=== PATIENT | female | born 1975 | race Caucasian/White ===

== ENCOUNTER → 2017-04-10 | Outpatient (CLI) | payer OTHER ==
[~2017-04-10] MED LIST: AMLO-110 PO; FEXO1TAB49 PO; HYDR-4079 PO; LOSA100T2 PO; ONDA4TAB46 PO; POTA10TA PO; PRM/125 PO; PROP160C PO; TPM/50 PO; TPM100 PO; ZLF/100 PO; ZOLP10TA PO
[2017-04-10 14:00] LABS: BASO % 0.7 %; BASO ABS # 0.05 K/uL (0-0.2); COMPLETE YES; EOS % 4.3 %; HEMATOCRIT 38.7 % (37-47); IG% 0.1 %; LYMPH % 24.4 %; LYMPH ABS # 1.65 K/uL (1.2-3.4); MEAN CELL VOLUME 88.6 fL (80-100); MEAN CORPUSCULAR HEMOGLOBIN 30.7 pg (25-34); MEAN CORPUSCULAR HGB CONC 34.6 g/dl (32-36); MEAN PLATELET VOLUME 9.7 fL (7.4-10.4); MONO % 6.5 %; PLATELET COUNT 209 K/uL (130-400); RED BLOOD COUNT 4.37 M/uL (4.2-5.4); WHITE BLOOD COUNT 6.76 K/uL (4.8-10.8)
[2017-04-10 14:22] LABS: ALT/SGPT 49 U/L (12-78); AST/SGOT 30 U/L (15-37); BLOOD UREA NITROGEN 20 mg/dl (7-18); BUN/CREATININE RATIO 18.4 (10-20); CALCIUM 9.1 mg/dl (8.5-10.1); CARBON DIOXIDE 24 mmol/L (21-32); CHLORIDE 109 mmol/L (98-107); GLUCOSE 92 mg/dl (70-99); POTASSIUM 3.8 mmol/L (3.5-5.1); SODIUM 141 mmol/L (136-145)
[2017-04-10 14:34] LABS: ALB/GLOB RATIO 1.1 (0.9-2); ALKALINE PHOSPHATASE 76 U/L (45-117)
== END | disposition home or self-care (01) ==
LOC: C.LABBC 10:32
PROVIDERS: ATTEND Physician Assistant Medical
DX: I10 Essential (primary) hypertension (principal)

== ENCOUNTER 2018-02-26 14:49 | Emergency (ER) | payer OTHER ==
[~2018-02-26 14:49] MED LIST changes: -AMLO-110 PO; +AMLO5TAB3 PO
[2018-02-26 14:55] VITALS: TEMP 36.8; Ht 177.8 cm
[2018-02-26] MEDS ORDERED: ACETAMINOPHEN 500 MG TAB PO STA (15:06)
--- NOTE | 2018-02-26 15:30 | DIAGNOSTIC IMAGING REPORT ---
R ANKLE MIN 3 VIEWS ROUTINE CLINICAL HISTORY: 42 years-old Female presenting with ankle injury. TECHNIQUE: Frontal, mortise, and lateral views the right ankle were obtained. COMPARISON: 08/30/2009. FINDINGS: Ankle mortise intact. No acute fracture or malalignment. No advanced degenerative change. Soft tissue swelling over the lateral malleolus. IMPRESSION: No acute osseous injury. Electronically signed by: Paul Thompson M.D. 02/26/2018 3:28 PM Dictated Date/Time: 02/26/2018 3:28 PM
--- NOTE | 2018-02-26 15:46 | EMERGENCY ROOM VISIT NOTE ---
ED Visit Note First contact with patient: 14:57 CHIEF COMPLAINT: Right ankle injury HISTORY OF PRESENT ILLNESS: This 42-year-old female patient sustained an injury to the right ankle with a twisting, inversion motion just prior to arrival.. Complains of swelling and pain. The patient is able to bear weight on the foot but with pain. Constant pain, moderate to severe, worse with movement, weight bearing, and the dependent position. No knee pain. Patient denies any prior ankle injury. The patient has seen [facility] in the past for other orthopedic needs. REVIEW OF SYSTEMS: 6 system review was performed and was negative unless stated otherwise in history of present illness. PMH: No prior significant ankle injury. Migraines, hysterectomy SOCIAL HISTORY: Patient lives any tobacco or alcohol use. PHYSICAL EXAM: Vital Signs: Were reviewed reviewed Nurse's notes. GENERAL: 42- year-old white female appears in no acute distress. MENTAL STATUS: Alert, oriented, and cooperative. RIGHT ANKLE: The ankle is swollen and tender over the lateral aspect but the skin is intact and there is no ligamentous instability. There is no deformity. The foot and toes are warm and well- perfused. Sensation to pain and light touch is intact. EMERGENCY DEPARTMENT COURSE: The patient was evaluated. The patient was given Tylenol 1 g p.o. for pain. X-ray of the right ankle was ordered interpreted by the radiologist and myself. DIAGNOSTICS:R ANKLE MIN 3 VIEWS ROUTINE CLINICAL HISTORY: 42 years-old Female presenting with ankle injury. TECHNIQUE: Frontal, mortise, and lateral views the right ankle were obtained. COMPARISON: 08/30/2009. FINDINGS: Ankle mortise intact. No acute fracture or malalignment. No advanced degenerative change. Soft tissue swelling over the lateral malleolus. IMPRESSION: No acute osseous injury. Electronically signed by: Paul Thompson M.D. 02/26/2018 3:28 PM The patient was informed of the findings. The patient was placed in a gel splint and given crutches. The patient also requested a walking boot to use as soon as she can bear weight since she cannot use crutches at work. The patient was discharged home in stable condition. DIAGNOSIS: Sprained right ankle DISCHARGE INSTRUCTIONS: Ice and elevation over the next 24 hours. Ibuprofen, 600 mg every 6 hours if needed for pain. Use crutches and wear gel splint until weightbearing is tolerable. If you can bear weight you can switch over to the walking boot. If there is no improvement in 3-5 days followup with your doctor or an orthopedic surgeon . Work as tolerated. Problem List Medical Problems: (1) Hypertension Status: Chronic (2) Migraine Unspecified W/O Intractable Migraine Status: Chronic (3) Syncope Status: Resolved (4) Total hysterectomy with removal of both tubes and ovaries Status: Resolved (5) Tubal Ligation Status Status: Resolved Current/Historical Medications Scheduled Amlodipine (Norvasc), 5 MG PO QAM Estrogens, Conjugated (Premarin), 1.25 MG PO DAILY Fexofenadine Hcl (Shabnam Allergy), 180 MG PO DAILY Losartan Potassium & Hydrochlo (Hyzaar), 1 TAB PO DAILY Potassium Chloride (K-Tabs), 10 MEQ PO DAILY Propranolol Hcl (Propranolol Hcl Er), 160 MG PO DAILY Sertraline HCl (Sertraline HCl), 100 MG PO DAILY Topiramate (Topamax), 50 MG PO QAM Topiramate (Topiramate), 100 MG PO QPM Zolpidem Tartrate (Ambien), 5-10 MG PO HS Scheduled PRN Hydrocodone/Acetaminophen 10MG/325MG ([place] 10MG/325MG), 1 TAB PO Q6H PRN for Pain Ondansetron Hcl (Zofran), 4 MG PO Q6H PRN for Nausea Allergies Coded Allergies: Quinolones (Verified Allergy, Mild, 03/12/16) Shellfish (Verified Allergy, Mild, 03/12/16) Iodinated Contrast Media (Verified Allergy, Unknown, "CAN'T BREATHE", 03/12) Moxifloxacin (Verified Adverse Reaction, Mild, VOMITING, 03/12/16) Vital Signs Date Time Temp Pulse Resp B/P (MAP) Pulse Ox O2 Delivery O2 Flow Rate FiO2 02/26/18 14:55 36.8 71 16 121/82 98 Room Air Medications Administered Medications (Trade) Dose Ordered Sig/Rachid Route Start Time Stop Time Status Last Admin Dose Admin Acetaminophen (Tylenol Tab) 1,000 mg NOW STAT PO 02/26/18 15:06 02/26/18 15:08 DC 02/26/18 15:12 1,000 MG Departure Information Referrals No Doctor, Assigned (PCP) [facility] Instructions [facility]
[2018-02-26 15:52] VITALS: BP 125/68; PULSE 73; O2SAT 99
== END 2018-02-26 16:05 | disposition home or self-care (01) ==
LOC: C.EDB 14:52 → C.EDD 16:05
DX: S93.401A Sprain of unspecified ligament of right ankle, initial encounter (principal); X50.1XXA Overexertion from prolonged static or awkward postures, initial encounter; I10 Essential (primary) hypertension; G43.909 Migraine, unspecified, not intractable, without status migrainosus; Z79.899 Other long term (current) drug therapy; Z91.041 Radiographic dye allergy status; Z88.8 Allergy status to other drugs, medicaments and biological substances; Z91.013 Allergy to seafood

== ENCOUNTER 2024-07-15 09:24 | Observation (INO) ==
--- NOTE | 2024-06-20 14:53 | PAT Medication Instructions ---
Medication Instructions Date of Service June 20, 2024 Home Medications Medication Instructions Recorded albuterol sulfate 90 mcg/actuation 1 - 2 puff inhalation Q4H PRN 08/27/21 aerosol inhaler (Ventolin HFA) Shortness Of Breath Or Wheezing #18 grams methylprednisolone 4 mg tablets in 4 mg PO .COMPLEX #21 ea 01/28/24 a dose pack (Medrol (Levi)) diazepam 5 mg tablet (Valium) 5 mg PO TID PRN muscle spasm #3 03/23/24 tabs diazepam 5 mg tablet (Valium) 5 mg PO TID PRN muscle spasm #6 04/29/24 tabs diclofenac potassium 50 mg tablet 50 mg PO BID #60 tabs 06/06/24 baclofen 10 mg tablet 10 mg PO BID #60 tabs 06/14/24 albuterol sulfate 90 mcg/actuation aerosol inhaler (Ventolin HFA) 1 - 2 puff inhalation Q4H PRN fluticasone 100 mcg-salmeterol 50 mcg/dose blistr powdr for inhalation (Advair Diskus) 1 inh inhalation BID PRN losartan 50 mg-hydrochlorothiazide 12.5 mg tablet 1 tab PO QAM topiramate 200 mg tablet (Topamax) 200 mg PO BID amlodipine 5 mg tablet 5 mg PO QAM rosuvastatin 20 mg tablet 20 mg PO QAM conjugated estrogens 0.3 mg tablet (Premarin) 0.3 mg PO QAM venlafaxine 150 mg capsule,extended release 24 hr (Effexor XR) 150 mg PO QAM methylprednisolone 4 mg tablets in a dose pack (Medrol (Levi)) 4 mg PO .COMPLEX diazepam 5 mg tablet (Valium) 5 mg PO TID PRN diclofenac potassium 50 mg tablet 50 mg PO BID baclofen 10 mg tablet 10 mg PO BID doxycycline monohydrate 100 mg capsule 100 mg PO BID gabapentin 300 mg capsule 300 mg PO BID melatonin 10 mg tablet 20 mg PO HS Continue as directed methylprednisolone 4 mg tablets in a dose pack (Medrol (Levi)) 4 mg PO .COMPLEX ASK your surgeon for instructions diclofenac potassium 50 mg tablet 50 mg PO BID ASK your prescriber and surgeon conjugated estrogens 0.3 mg tablet (Premarin) 0.3 mg PO QAM DO NOT take the morning of surgery losartan 50 mg-hydrochlorothiazide 12.5 mg tablet 1 tab PO QAM Take morning of surgery With a small sip of water, OTHERWISE NOTHING TO EAT OR DRINK AFTER MIDNIGHT: albuterol sulfate 90 mcg/actuation aerosol inhaler (Ventolin HFA) 1 - 2 puff inhalation Q4H PRN(use if needed; please bring with you to hospital day of surgery if possible) fluticasone 100 mcg-salmeterol 50 mcg/dose blistr powdr for inhalation (Advair Diskus) 1 inh inhalation BID PRN(use if needed; please bring with you to hospital day of surgery if possible) topiramate 200 mg tablet (Topamax) 200 mg PO BID amlodipine 5 mg tablet 5 mg PO QAM rosuvastatin 20 mg tablet 20 mg PO QAM venlafaxine 150 mg capsule,extended release 24 hr (Effexor XR) 150 mg PO QAM diazepam 5 mg tablet (Valium) 5 mg PO TID PRN(if needed) baclofen 10 mg tablet 10 mg PO BID doxycycline monohydrate 100 mg capsule 100 mg PO BID gabapentin 300 mg capsule 300 mg PO BID Take evening before surgery albuterol sulfate 90 mcg/actuation aerosol inhaler (Ventolin HFA) 1 - 2 puff inhalation Q4H PRN(if needed) fluticasone 100 mcg-salmeterol 50 mcg/dose blistr powdr for inhalation (Advair Diskus) 1 inh inhalation BID PRN(if needed) topiramate 200 mg tablet (Topamax) 200 mg PO BID diazepam 5 mg tablet (Valium) 5 mg PO TID PRN(if needed) baclofen 10 mg tablet 10 mg PO BID doxycycline monohydrate 100 mg capsule 100 mg PO BID gabapentin 300 mg capsule 300 mg PO BID melatonin 10 mg tablet 20 mg PO HS Other Notes If you have any questions please call us at [phone] or [phone] or [phone] or [phone]
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
[2024-07-15] MEDS ORDERED: MIDAZOLAM HCL 1 MG/ML 2ML VIAL ONE ×2 (10:01→11:36)
[2024-07-15] MEDS ORDERED: fentaNYL citrate PF 100 MCG/2 ML VIAL ONE (10:01)
[2024-07-15] MEDS ORDERED: GLYCOPYRROLATE 0.2 MG/ML VIAL ONE ×3 (10:02→15:16)
[2024-07-15] MEDS ORDERED: PROPOFOL IV EMULSION 10 MG/ML 20 ML VIAL IV ONE ×5 (10:02→10:30)
[2024-07-15] MEDS ORDERED: LIDOCAINE 2% 2 ML VIAL/AMP(20MG/ML) INFIL ONE (10:02)
[2024-07-15] MEDS ORDERED: ONDANSETRON INJ 2 MG/ML 2 ML VIAL ONE (10:02)
[2024-07-15] MEDS ORDERED: DEXAMETHASONE SOD INJ 4 MG/ML VIAL ONE (10:02)
[2024-07-15] MEDS ORDERED: ROCURONIUM BROMIDE 10 MG/ML 5 ML VIAL IV ONE (10:02)
[2024-07-15] MEDS: LACTATED RINGER'S 1,000 ML IV SCH (10:05)
[2024-07-15] MEDS: LR 60ML/HR IV SCH (10:06)
[2024-07-15] MEDS ORDERED: ATROPINE SULFATE 0.1 MG/ML 10ML SYR IV PRN (10:57)
[2024-07-15] MEDS ORDERED: ONDANSETRON INJ 2 MG/ML 2 ML VIAL IV PRN ×2 (10:57→18:26)
[2024-07-15] MEDS ORDERED: ePHEDrine sulfate 50 MG/ML AMP IV PRN (10:57)
[2024-07-15] MEDS ORDERED: PHENYLEPHRINE HCL 10 MG/ML VIAL ONE (11:36)
--- NOTE | 2024-07-15 12:04 | History & Physical Bridge Note ---
Date of Service July 15, 2024 History & Physical Bridge Note I have examined the patient, reviewed the History & Physical and in the interval since the performance of the History & Physical I have noted the following changes of clinical significance: no changes noted Plan for L4-5 TLIF.
--- OUTSIDE RECORDS SUMMARY | 2024-07-15 12:06 | External Medical Summary | Summary of Care ---
Author Name Unknown Organization [facility] Address [address] [address] Phone [phone] Care Team Providers Care Manager Machine Name Role Phone Kamila Villaseñor Primary Care Provider Reason for Visit * Reason Comments eRx-Medication Refill Encounter Details Date Type Department Care Team (Late st Contact Info) Description 07/10/2024 Refill Family Practice [facility] [address] [place] [id number] Kamila Villaseñor CRNP [address] [place] [id number] Allergies Active Allergy Reactions Criticality Noted Date Comments Moxifloxacin Hcl In Nacl 12/29/2014 Codeine 12/29/2014 Iodine Itching 03/31/2016 Shellfish Allergy 12/29/2014 documented as of this encounter (statuses as of 07/12/2024) Medications amLODIPine Besylate 5 MG Oral Tablet (Norvasc)Indicati ons:HTN, goal below 130/80 TAKE 1 TABLET BY MOUTH EVERY DAY IN THE MORNING 90 Tablet 1 01/08/20 24 Active Fluticasone-Salme terol 100-50 MCG/ACT Inhalation Aerosol Powder Breath Activated (Advair Diskus)Indication s:Moderate persistent asthma without complication INHALE 1 PUFF BY MOUTH IN THE MORNING AND BEFORE BEDTIME 60 Each 2 05/17/20 24 Active Topiramate 200 MG Oral Tablet (topAMAX)Indicati ons:Migraine with aura and without status migrainosus, not intractable TAKE 2 TABLETS BY MOUTH TWICE A DAY 120 Tablet 2 06/08/20 24 Active Albuterol Sulfate HFA 108 (90 Base) MCG/ACT Inhalation Aerosol SolutionIndicatio ns:Moderate persistent asthma without complication INHALE BY MOUTH 2 PUFFS EVERY 6 HOURS NEEDED FOR SHORTNESS OF BREATH OR WHEEZING. 18 g 2 06/16/20 24 Active Baclofen 10 MG Oral Tablet (Lioresal) Take 1 Tablet by mouth in the morning and 1 Tablet before bedtime. 06/14/20 24 Active Restasis 0.05 % Ophthalmic Emulsion Instill 1 Drop into both eyes in the morning and 1 Drop before bedtime. 06/02/20 24 Active Gabapentin 300 MG Oral Capsule (Neurontin) Take 1 Capsule by mouth in the morning and 1 Capsule in the evening. 06/06/20 24 Active Diclofenac Potassium 50 MG Oral Tablet Take 1 Tablet by mouth in the morning and 1 Tablet before bedtime. 06/06/20 24 Active predniSONE 10 MG Oral Tablet (Deltasone)Indica tions:Bronchitis, complicated Take 5 tabs for 2 days, 4 tabs for 2 days, 3 tabs for 2 days, 2 tabs for 2 days 1 tab for 2 days 30 Tablet 06/20/20 24 Active Venlafaxine HCl ER 150 MG Oral Capsule Extended Release 24 Hour (Effexor XR)Indications:Ho t flashes due to surgical menopause TAKE 1 CAPSULE BY MOUTH IN THE MORNING. DO NOT CUT, CRUSH OR CHEW. 90 Capsule 07/04/20 24 Active Premarin 1.25 MG Oral Tablet (Estrogens Conjugated)Indica tions:Hot flashes due to surgical menopause TAKE 1 TABLET BY MOUTH EVERY DAY IN THE MORNING 90 Tablet 07/04/20 24 Active Rosuvastatin Calcium 20 MG Oral Tablet (Crestor)Indicati ons:Hyperlipidemi a, unspecified hyperlipidemia type TAKE 1 TABLET BY MOUTH EVERY DAY IN THE MORNING 90 Tablet 07/04/20 24 Active Losartan Potassium 100 MG Oral Tablet (Cozaar) TAKE 1 TABLET BY MOUTH EVERY DAY IN THE MORNING 30 Tablet 07/12/20 24 Active hydroCHLOROthiazi de 12.5 MG Oral Capsule TAKE 1 CAPSULE BY MOUTH EVERY MORNING 30 Capsule 07/12/20 24 Active Losartan Potassium 100 MG Oral Tablet (Cozaar) Take 1 Tablet by mouth in the morning. 30 Tablet 11 07/14/19 24 024 Discontinued hydroCHLOROthiazi de 12.5 MG Oral Capsule Take 1 Capsule by mouth in the morning. 90 Capsule 1 01/08/20 24 024 Discontinued documented as of this encounter (statuses as of 07/12/2024) Active Problems Problem Noted Date Diagnosed Date Hyperhidrosis 01/08/2024 Need for ejvyaqezny-vzhkohv-ubtvsaujj (Tdap) vac cine 01/08/2024 Moderate persistent asthma without complication 07/14/2023 Stress reaction 07/14/2023 Status post left rotator cuff repair 01/08/2023 Hot flashes due to surgical menopause 01/08/2023 Hepatitis C virus infection cured after antiviral drug therapy 12/12/2022 Overview (12/12/2022): HCV treated; SVR confirmed 12/09/2022 Migraine with aura and witho ut status migrainosus, not intractable 04/15/2022 HTN, goal below 130/80 04/15/2022 Irritable bowel syndrome with constipation 04/15 documented as of this encounter (statuses as of 07/12/2024) Resolved Problems Problem Noted Date Diagnosed Date Resolved Date Chronic hepatitis C without hepatic coma 04/15/2022 12/12/2022 Overview (12/12/2022): HCV treated; SVR confirmed 12/09/2022 documented as of this encounter (statuses as of 07/12/2024) Immunizations Name Administration Dates Next Due COVID-19 mRNA, LNP-s, No Pre serve, 2-Dose Series ([employer]) 10/26/2020,10/05/2020 COVID-19, mRNA, LNP-s, PF, B ooster, 100mcg/0.5mg (Moderna) 05/27/2021 HEP A - Hepatitis A (Adult > 18 yrs) 01/08/2023, 12/27/2021 06/28/2022 HEPATITIS B VACCINE, RECOMB, 20 MCG/ML, ADULT (HEPLISAV-B) 01/08/2023 Hepatitis B, 20+ yrs 01/22/2022,12/27/202101/26 Seasonal Influenza, PF, 6 M & above, IM , (FluLaval or Fluzone) 07/14/2023 documented as of this encounter Social History Tobacco Use Types Packs/Day Years Used Date Smoking Tobacco: Never Passive Smoke Exposure: Never Smokeless Tobacco: Never Alcohol Use Standard Drinks/Week Comments Yes 2.5 (1 standard drink = 0.6 oz p ure alcohol) occasionally Comments No Sex and Gender Information Value Date Recorded Sex Assigned at Not on file Legal Sex Female 7:15 AM EST Gender Identity Not on file Sexual Orientation Not on file 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 Not on file Not on file Not on file documented as of this encounter Miscellaneous Notes * Telephone Encounter - Ric Solano MD - 07/12/2024 3:07 PM EST Signed Prescriptions: Disp Refills Losartan Potassium 100 MG Oral Tablet (Coz*30 Tab*0 Sig: TAKE 1 TABLET BY MOUTH EVERY DAY IN THE MORNING Authorizing Provider: RIC SOLANO hydroCHLOROthiazide 12.5 MG Oral Capsule 30 Cap*0 Sig: TAKE 1 CAPSULE BY MOUTH EVERY MORNING Authorizing Provider: RIC SOLANO * Telephone Encounter - Milly Hirsch, box sealing inspector - 07/12/2024 1:57 PM EST Pending Prescriptions: Disp Refills Losartan Potassium 100 MG Oral Tablet (Coz*30 Tab*0 Sig: TAKE 1 TABLET BY MOUTH EVERY DAY IN THE MORNING hydroCHLOROthiazide 12.5 MG Oral Capsule 30 Cap*0 Sig: TAKE 1 CAPSULE BY MOUTH EVERY MORNING * Telephone Encounter - Milly Hirsch box sealing inspector - 07/12/2024 1:56 PM EST Received message from [facility] regarding patient needing labs. Call [facility] She will not be able to do labs for a while Thank you for your assistance Milly Hirsch Logging Assistant II [facility] 07/12/2024,1:56 PM * Telephone Encounter - Shasta Muñoz [facility] - 07/12/2024 6:31 AM ESTPending Prescriptions: Disp Refills Losartan Potassium 100 MG Oral Tablet (Coz*30 Tab*0 Sig: TAKE 1 TABLET BY MOUTH EVERY DAY IN THE MORNING hydroCHLOROthiazide 12.5 MG Oral Capsule 30 Cap*0 Sig: TAKE 1 CAPSULE BY MOUTH EVERY MORNING * Telephone Encounter - Shasta Muñoz [facility] - 07/12/2024 6:31 AM EST Unable to authorize medication refills for pended medication(s) at this time. Per refill protocol patient should have routine on file within past year. Reviewed AMP report, Care Gaps/Health Maintenance, medications list, and for any routine labs typically ordered for this patient. Lab orders placed. Please contact patient to advise of labs ordered for blood draw AND URINE specimen (patient will have to be able to void to provide sample). Recommend patient to fast if able for labs. Patient may still have water and regular medications. Advise to obtain labs before requesting the next refill. After contacting patient, please forward request to ZAYRA Antonio. Thanks, Shasta Muñoz Clinical Pharmacist [facility] [phone] 07/12/2024, 6:31 AM documented in this encounter Plan of Treatment Upcoming Encounters Date Type Department Care Team (Heidi erickson Contact Info) Description 07/21/2024 1:00 PM EST Office Visit Family [facility] [address] [place] [address] Kamila Villaseñor CRNP [address] [place] [address] Health Maintenance Due Date Last Done Comments Depression Screening 1988 Albumin/Creatinine Ratio 1994 DTap/Tdap Vaccines (1 - Tdap) 1995 Pneumococcal Vaccine: Pediatrics (0 to 5 Years) and At-Risk Patients (6 to 18 Years and 19+ Years) (1 of 2 - PCV) 1995 Cologuard 2021 Colonoscopy 2021 Colorectal Cancer Screening 2021 Fecal Occult Blood Test 2021 Sigmoidoscopy 2021 *SPIROMETRY ONCE FOR ASTHMA-ADULT 07/16/2023 GFR 12/10/2023 12/09/2022, 12/03/2021, 12/29/2014 Mammogram 01/16/2024 01/15/2023, 01/15/2023 COVID-19 Vaccine (4 - 2023-2 5 season) 2024 05/27/2021, 10/26/2020, 10/05/2020 Influenza Vaccine (FLU shot) (#1) 2024 07/14/2023 Diabetes Screening 12/09/2025 12/09/2022, 12/03/2021, 12/29/2014 Lipid Panel 12/10/2027 12/09/2022, 01/22/2022 HPV (Gardasil) Vaccine Aged Out No lo nger eligible based on patient's age to complete this topic MENINGOCOCCAL (MENACTRA/MENVEO) Aged Out No longer eligible b ased on patient's age to complete this topic documented as of this encounter Medical Devices Not on filedocumented as of this encounter Care Teams Manager Machine Relationship Specialty Start Date End Date Kamila Villaseñor CRNP [address] [place] [address] PCP - General Nurse Practitioner 07/04/24 documented as of this encounter
[2024-07-15] MEDS ORDERED: PROPOFOL IV EMULSION 10 MG/ML 100 ML VIAL IV ONE ×2 (12:45→15:14)
[2024-07-15] MEDS: ceFAZolin 2000MG 2,000 MG/15 ML SYR IV SCH ×2 (13:13→22:15)
[2024-07-15] MEDS ORDERED: KETAMINE HCL 10MG/ML SYR ONE (13:55)
[2024-07-15] MEDS ORDERED: ePHEDrine sulfate 50 MG/5 ML SYR ONE (13:58)
--- NOTE | 2024-07-15 14:05 | Anesthesiology Progress Note ---
Date of Service July 15, 2024 Anesthesia Post Procedure Vital Signs Vital Signs: Temp Pulse Resp BP Pulse Ox O2 Del Method 07/15/24 09:58 36.4 C L 65 18 145/107 H 97 Room Air Transfer of Care Handoff Completed per policy Notes Mental Status: alert / awake / arousable Patient Amnestic to Procedure: Yes Nausea / Vomiting: adequately controlled Pain: adequately controlled Airway Patency, RR, SpO2: stable & adequate BP & HR: stable & adequate Hydration State: stable & adequate Anesthetic Complications: no major complications apparent and Pt Satisfied with anesthetic care
[2024-07-15] MEDS ORDERED: HYDROmorphone INJ 2 MG/ML SYR/VIAL ONE (14:31)
[2024-07-15] MEDS ORDERED: SODIUM CHLORIDE 0.9% PF INJ 10 ML VIAL ONE ×2 (14:32)
[2024-07-15] MEDS ORDERED: ceFAZolin 330 MG/ML 1 GM VIAL ONE ×2 (16:15)
[2024-07-15] MEDS: ceFAZolin 2000MG 2,000 MG/15 ML SYR IV ONE (16:45)
[2024-07-15] MEDS: FLOSEAL HEMOSTATIC MATRIX 10ML TOP ONE (16:48)
[2024-07-15] MEDS: VANCOMYCIN HCL 1000MG/20ML VIAL ONE (17:00)
--- NOTE | 2024-07-15 17:17 | Post Operative Brief Note ---
PG Immediate Post Op with CF Date of Surgery July 15, 2024 Pre & Post Diagnosis Operation Date: 07/15/24 11:20 Pre-Op Diagnosis: Lumbar Spondylolisthesis and Radiculopathy Post-Op Diagnosis: Lumbar Spondylolisthesis and Radiculopathy I identified the patient and participated in the time-out.: Yes Procedure Operation Date: 07/15/24 11:20 Actual Procedures p L4-L5 Transforaminal Lumbar Interbody Fusion, with Spinal Cord Monitoring(Not Applicable) - Kurt Contreras MD Surgeon Kurt Contreras MD X Ray Developing Machine Operator Dhruv AMAYA Estimated Blood Loss 300 Findings Consistent with Post-Op Diagnosis Specimens Specimen Description: No specimen Drains Everett Catheter and Hakeem-Willett Drain
[2024-07-15] MEDS: BUPIVACAINE 0.5 % 5 MG/1 ML MPF 30ML VIAL ONE (17:23)
--- NOTE | 2024-07-15 17:34 | Operative Report ---
PG Post Operative Report Pre & Post Diagnosis Operation Date: 07/15/24 11:20 Pre-Op Diagnosis: Lumbar Spondylolisthesis and Radiculopathy Lumbar spondylosis Lumbar disc degeneration Lumbar stenosis without neurogenic claudication Post-Op Diagnosis: Lumbar Spondylolisthesis and Radiculopathy Lumbar spondylosis Lumbar disc degeneration Lumbar stenosis without neurogenic claudication I identified the patient and participated in the time-out.: Yes Procedure Transforaminal lumbar interbody fusion with posterior lateral fusion L4-5 (20475) Insertion of interbody spacer for fusion (27219) Posterior nonsegmental pedicle screw instrumentation L4-L5 (78891) Use of intraoperative stereotactic navigation for pedicle screw instrumentation Use of local autograft morselized and allograft for spinal fusion Surgeon Kurt Contreras MD Tandem Mill Roller Dhruv AMAYA Estimated Blood Loss 300 Findings Consistent with Post-Op Diagnosis Implants: Medtronic Solera pedicle screw Medtronic Catalyft interbody spacer Specimens None Drains HAROON Anesthesia Type General Complications none Disposition Disposition: Recovery Room Indications Patient was met in the clinic setting where she had intractable back pain and radicular pain despite conservative care. We discussed further conservative management versus lumbar interbody fusion, after discussion of risks and benefits she agreed to proceed with surgery given failure of nonoperative management. Risks and benefits were discussed in the clinic and documented in her note, informed consent obtained in the office. Description of Procedure I met the patient in the preoperative holding area, surgical site was marked, I again reviewed the procedure and all questions were answered. Patient was brought to the operating room and general anesthesia was induced. She was placed in the prone position on the Hakeem spine table. All bony prominences were padded. She was prepped and draped in the usual sterile fashion. Verbal timeout was performed. Navigation pin was placed into the right side of the PSIS the [employer] O-arm was then brought in and an intraoperative CT scan was performed. The images were uploaded to the in room Stealth navigation unit for placement of instrumentation. I then used the Stealth navigation unit to identify a skin incision over the L4 and L5 spinous processes. Bovie electrocautery was used to dissect down to the lumbodorsal fascia which was split midline over the spinous processes. Subperiosteal dissection was then carried out using Bovie electrocautery to expose the lamina of L4 and 5, L4 and 5 transverse processes as well as the L4-5 facet joints. Next utilizing a navigated bur and Stealth navigation I created airline pilot flight instructor holes into the L4 and L5 pedicles. All was then used to further cannulate tracks into the L4 and L5 pedicles and into the vertebral bodies. Pedicle screws were then placed utilizing navigation into the pedicles of L4 and L5, 6.5 mm diameter scr ews were used at each level. The [employer] O-arm was then brought back in, and a repeat intraoperative CT scan was performed and the images were uploaded to the in room viewer. I then verified using the CT images that pedicle screws were in good position. Pedicle screws were then stimulated by neuromonitoring, no response up to 20 Milliamps. At this point a pedicle screw distractor was attached to the L4 and L5 pedicle screws on the right. The facet joints were taken down completely at L4-5 on the right, to allow access to the L4-5 foramen. The facet joint was removed as well as half of the lamina of L4. Distraction was applied across the pedicle screws. I identified the L4-5 disc space, the traversing L5 nerve root and exiting L4 nerve root were protected by my carpenter assistant with nerve root retractors. Annulus was then incised of the L4-5 disc space. I performed as completed discectomy as possible using cristi, curettes, bone rasp to remove the L4-5 disc and obtain bleeding endplates within the disc space. The disc space was then packed with a combination of autograft bone harvested from the laminectomy and morselized as well as allograft bone material. An interbody spacer was selected and impacted into the L4-5 disc space under fluoroscopic guidance. The interbody spacer was then expanded within the L4-5 disc space to obtain good bony endplate contact. I inspected the traversing nerve root once again and verified that it was free of any compression. At this point I decorticated the L4-5 transverse processes on the right and packed the area with more allograft bone and ceramic based bone graft lockstitch binder. The left L4-5 facet joint was decorticated and packed with demineralized bone matrix as well as ceramic bone graft lockstitch binder. This completed posterior lateral fusion. Rods were placed into the tulip heads of the L4 and L5 pedicle screws, setscrews were tightened with the Medtronic final tightened here. Wound was thoroughly irrigated. A drain was placed exiting out through the skin below the fascia. Wound was then closed in layers with strata fix suture in the fascia, skin was closed with strata fix and zack. Sterile dressing applied, drain attached to suction and patient taken to PACU in stable condition I attest to the content of the Intraoperative Record and any orders documented therein. Any exceptions are noted below.
[2024-07-15] MEDS: fentaNYL citrate PF 100 MCG/2 ML VIAL IV PRN (17:37)
[2024-07-15] MEDS: HYDROmorphone INJ 1 MG/ML SYRINGE IV PRN ×2 (18:02→19:29)
--- NOTE | 2024-07-15 18:15 | Anesthesiology Progress Note ---
Date of Service July 15, 2024 Anesthesia Post Procedure Vital Signs Vital Signs: Temp Pulse Pulse Resp BP Pulse Ox O2 Del Method 07/15/24 18:10 36.7 C 92 H 15 124/69 98 Room Air 07/15/24 18:00 92 H 12 114/85 94 Nasal Cannula 07/15/24 17:50 96 H 16 123/74 95 Room Air 07/15/24 17:40 97 H 12 110/78 98 Oxymask 07/15/24 17:30 96 H 16 121/84 99 Oxymask 07/15/24 17:21 36.2 C L 95 H 16 122/83 99 Oxymask 07/15/24 09:58 36.4 C L 65 18 145/107 H 97 Room Air O2 Flow Rate 07/15/24 18:10 2 07/15/24 18:00 2 07/15/24 17:50 07/15/24 17:40 7 07/15/24 17:30 7 07/15/24 17:21 7 07/15/24 09:58 Pain Intensity Back: Pain Intensity: 8 Transfer of Care Handoff Completed per policy Notes Mental Status: alert / awake / arousable and participated in evaluation Patient Amnestic to Procedure: Yes Nausea / Vomiting: adequately controlled Pain: adequately controlled Airway Patency, RR, SpO2: stable & adequate BP & HR: stable & adequate Hydration State: stable & adequate Anesthetic Complications: no major complications apparent and Pt Satisfied with anesthetic care
[2024-07-15] MEDS ORDERED: diphenhydrAMINE Capsule 25 MG CAP PO PRN (18:26)
[2024-07-15] MEDS ORDERED: bisacodyL 10 MG SUPP PR PRN (18:26)
[2024-07-15] MEDS ORDERED: PROMETHAZINE 12.5 MG/50.5 ML BAG IV PRN (18:26)
[2024-07-15] MEDS ORDERED: ALBUTEROL HFA 8 GM INHALER INH PRN (18:26)
[2024-07-15] MEDS ORDERED: DO NOT ADMINISTER FLU VACCINE PRN (18:26)
[2024-07-15] MEDS ORDERED: ONDANSETRON 4 MG OD TAB PO PRN (18:26)
[2024-07-15] MEDS ORDERED: ALUMINUM/MAGNESIUM SUSP 30 ML UDC PO PRN (18:26)
[2024-07-15] MEDS ORDERED: DO NOT ADMINISTER PNEUMOCOCCAL VACCINE PRN (18:26)
[2024-07-15] MEDS ORDERED: HYDROmorphone INJ 0.5 MG/0.5 ML SYR IV PRN (18:26)
[2024-07-15] MEDS ORDERED: MAGNESIUM HYDROXIDE SUSP 30 ML UDC PO PRN (18:26)
[2024-07-15] MEDS ORDERED: FAMOTIDINE 20 MG TAB PO PRN (18:26)
[2024-07-15] MEDS ORDERED: ACETAMINOPHEN 500 MG TAB PO PRN (18:26)
[2024-07-15] MEDS ORDERED: NALOXONE HCL 0.4 MG/1 ML VIAL/CARP IV PRN (18:26)
[2024-07-15] MEDS ORDERED: SOD PHOSPHATE/SOD BIPHOSPHATE ENEMA 132 ML BTL PR PRN (18:26)
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
[2024-07-15] MEDS: SODIUM CHLORIDE 0.9% 500 ML IV SCH (18:52)
[2024-07-15] MEDS: diazePAM 5 MG TABLET PO PRN (19:29)
[2024-07-15] MEDS: KETOROLAC 30 MG/ML VIAL IV SCH (19:29)
[2024-07-15] MEDS: BACLOFEN 10 MG TAB PO SCH (22:13)
[2024-07-15] MEDS: oxyCODONE/ACETAMINOPHEN 5mg/325mg TAB PO PRN (22:13)
[2024-07-15] MEDS: GABAPENTIN 300 MG CAP PO SCH (22:14)
[2024-07-15] MEDS: DOCUSATE SODIUM/SENNA 50/8.6MG TAB PO SCH (22:14)
[2024-07-15] MEDS: TOPIRAMATE 100 MG TAB PO SCH (22:14)
[2024-07-15] MEDS: MELATONIN 3 MG TAB PO SCH (22:15)
[2024-07-16] MEDS: hydrOXYzine HCl 25 MG TAB PO PRN (01:49)
[2024-07-16] MEDS: POLYETHYLENE (MIRALAX) 17 GM PACK PO SCH (06:02)
[2024-07-16 06:29] LABS: Basophils # (auto) 0.03 K/uL (0.00-0.20); Basophils % (auto) 0.4 %; Eosinophils # (auto) 0.04 K/uL (0.00-0.50); Eosinophils % (auto) 0.5 %; Hematocrit (blood only) 26.7 % (37.0-47.0); Hemoglobin 9.2 g/dl (12.0-16.0); Immature Granulocytes # (auto) 0.02 K/uL (0.01-0.20); Immature Granulocytes % (auto) 0.3 %; Lymphocytes # (auto) 1.89 K/uL (1.20-3.40); Lymphocytes % (auto) 25.9 %; Mean Corpuscular Hemoglobin 30.2 pg (25.0-34.0); Mean Corpuscular Hgb Conc 34.5 g/dL (32.0-36.0); Mean Corpuscular Volume 87.5 fL (80.0-100.0); Mean Platelet Volume 9.7 fL (9.4-12.4); Monocytes % (auto) 8.2 %; Neutrophils # (auto) 4.72 K/uL (1.40-6.50); Neutrophils % (auto) 64.7 %; Platelet Count 174 K/uL (130-400); RDW Coefficient of Variation 13.4 % (11.5-14.5); RDW Standard Deviation 42.8 fL (36.4-46.3); Red Blood Count 3.05 M/uL (4.20-5.40)
[2024-07-16 06:45] LABS: BUN Creatinine Ratio 25.8 (10-20); Calcium 7.9 mg/dl (8.6-10.3); Creatinine Clr Calc Pharmacy 94.3 ml/min; Magnesium 1.9 mg/dl (1.7-2.4); Potassium 3.1 mmol/L (3.5-5.1)
--- NOTE | 2024-07-16 07:48 | Hospitalist Progress Note ---
Date of Service July 16, 2024 Assessment & Plan (1) Lumbar radiculopathy: (2) S/P lumbar spine operation: Plan Yudy Perdomo is a 48-year-old with past medical history significant for asthma, HTN, HLD, IBS with constipation, hyperhidrosis, migraines, hepatitis C virus infection cured after antiviral drug therapy and anxiety/depression who was referred to our [facility] Team for routine postoperative medical management after undergoing elective L4-L5 transforaminal lumbar interbody fusion secondary to lumbar spondylolisthesis and radiculopathy performed by Dr. Kurt Contreras on 07/15/2024. Lumbar Spondylolisthesis and Radiculopathy S/P Surgery: POD #1 s/p L4-L5 transforaminal lumbar interbody fusion with Dr. Contreras on 07/15/2024. Pre-Op Hgb: 12.4 [as of 07/04/2024] Per ortho for pain control, wound care, anticoagulation and activities. Continue incentive spirometry, PT/OT when appropriate as per ortho team. Acute blood loss anemia, post-op vs dilutional - current Hgb 9.2 - no need for blood transfusion - cont. to monitor Other Chronic Medical Conditions: * HTN - Hold home antihypertensives for ISO relative hypotension. Asthma - Continue home inhaler. * Depression/Anxiety - Continue Effexor XR, diazepam PRN. HLD - Continue statin. Migraines - Topamax. DVT Prophylaxis: SCDs/TEDs as per primary service. Code Status: FULL CODE PCP: ZAYRA Awan Disposition:Med/Surg - discharge planning as per primary service. Thank you for this consultation. We will follow the patient with you during their hospital stay. You can reach a member of the [facility]ist Team 02/02 via [employer]. Admission and Anticipated Discharge Date Admission Date: July 15, 2024 Subjective Pt seen in follow up , s/p spinal surg., med consult Currently laying in bed in NAD, family present at the bedside Feeling well, having some post-surgical pain, but LE pain she had before surgery is resolved No fever, chills, chest pain, shortness of breath, no abd. pain, n/v Ambulating w/ walker this AM w/ PT. Voiding w/o difficulty. No BM yet Review of Systems Review of Systems: All systems reviewed & are unremarkable except as noted in Subjective Physical Exam Physical Exam: GENERAL: WD/WN F in NAD HEENT: NC, AT. MMM. EOMI, clear conjunctiva NECK: Supple without lymphadenopathy. No stiffness or restricted ROM. HEART: Normal rate and regular rhythm, normal S1/S1, no m/r/g LUNGS: CTAB, moving air well. No crackles or wheezes are heard. ABDOMEN: Soft, nontender, nondistended, +bowel sounds. EXTREMITIES: no LE edema, moves extremities NEUROLOGICAL: Alert and oriented, speech fluent, answers appropriately, moving all 4 extremities Skin: Warm and dry without any rash. + tattoos Results & Data Results & Data Vital Signs (Past 12 Hours) Vital Signs Temp Pulse Resp BP BP Pulse Ox O2 Del Method 07/16/24 04:59 36.9 C 70 18 120/74 97 Room Air 07/16/24 00:17 36.5 C 78 18 130/81 96 Room Air 07/15/24 21:30 36.8 C 84 18 116/66 98 Room Air 07/15/24 20:30 36.7 C 88 18 106/67 96 Room Air 07/15/24 19:56 Room Air Laboratory Results 07/16/24 Range/Units 05:53 WBC 7.30 (4.8-10.8) K/ul RBC 3.05 L (4.20-5.40) M/uL Hgb 9.2 L (12.0-16.0) g/dl Hct 26.7 L (37.0-47.0) % MCV 87.5 (80.0-100.0) fL MCH 30.2 (25.0-34.0) pg MCHC 34.5 (32.0-36.0) g/dL RDW Std Deviation 42.8 (36.4-46.3) fL RDW Coeff of Chauncey 13.4 (11.5-14.5) % Plt Count 174 (130-400) K/uL MPV 9.7 (9.4-12.4) fL Immature Gran % (Auto) 0.3 % Neut % (Auto) 64.7 % Lymph % (Auto) 25.9 % [facility] % (Auto) 8.2 % Eos % (Auto) 0.5 % Baso % (Auto) 0.4 % Neut # (Auto) 4.72 (1.40-6.50) K/uL Lymph # (Auto) 1.89 (1.20-3.40) K/uL [facility] # (Auto) 0.60 H (0.11-0.59) K/uL Eos # (Auto) 0.04 (0.00-0.50) K/uL Baso # (Auto) 0.03 (0.00-0.20) K/uL Immature Gran # (Auto) 0.02 (0.01-0.20) K/uL Sodium 138 (136-145) mmol/L Potassium 3.1 L (3.5-5.1) mmol/L Chloride 109 H (98-107) mmol/L Carbon Dioxide 22 (21-32) mmol/L Anion Gap 7 (3-11) BUN 23 (6-23) mg/dl Creatinine 0.89 (0.6-1.2) mg/dl Est Cr Clr Drug Dosing 94.3 ml/min eGFR 80.42 BUN/Creatinine Ratio 25.8 H (10-20) Glucose 104 H (70-99(Fasting)) mg/dl Calcium 7.9 L (8.6-10.3) mg/dl Magnesium 1.9 (1.7-2.4) mg/dl Medications Administered Current Inpatient Medications Acetaminophen (Acetaminophen 500 Mg Tab) 1,000 mg PO Q8H PRN PRN Reason: MILD Pain Scale 1,2,3 & Pre PT Stop: 08/14/24 18:25 Al Hydrox/Mg Hydrox/Simethicone (Aluminum/Magnesium Susp 30 Ml Udc) 30 ml PO Q6H PRN PRN Reason: Dyspepsia Stop: 08/14/24 18:25 Albuterol (Albuterol Hfa 8 Gm Inhaler) 1 - 2 puffs INH Q4H PRN PRN Reason: Shortness Of Breath Or Wheezing Stop: 08/14/24 18:25 Baclofen (Baclofen 10 Mg Tab) 10 mg PO BID MOSHE Stop: 08/14/24 20:59 Last Admin: 07/15/24 22:13 Dose: 10 mg Bisacodyl (Bisacodyl 10 Mg Supp) 10 mg MT DAILY PRN PRN Reason: Constipation Stop: 08/14/24 18:25 Diazepam (Diazepam 5 Mg Tablet) 5 mg PO TID PRN PRN Reason: muscle spasm Stop: 08/14/24 18:25 Last Admin: 07/16/24 06:02 Dose: 5 mg Diphenhydramine HCl (Diphenhydramine Capsule 25 Mg Cap) 25 mg PO Q6H PRN PRN Reason: Allergic Rhinitis/Insomnia Stop: 08/14/24 18:25 Famotidine (Famotidine 20 Mg Tab) 20 mg PO Q12H PRN PRN Reason: Dyspepsia Stop: 08/14/24 18:25 Fluticasone/Vilanterol (Fluticasone/Vilanterol 100/25mcg 14 Puffs/Inhaler) 1 puffs INH DAILY MOSHE Stop: 08/15/24 08:59 Gabapentin (Gabapentin 300 Mg Cap) 300 mg PO BID MOSHE Stop: 08/14/24 20:59 Last Admin: 07/15/24 22:14 Dose: 300 mg Hydromorphone HCl (Hydromorphone Inj 0.5 Mg/0.5 Ml Syr) 0.5 mg IV Q3H PRN PRN Reason: MODERATE Pain (Scale 4,5,6) & Pre PT Stop: 07/29/24 18:25 Hydromorphone HCl (Hydromorphone Inj 1 Mg/Ml Syringe) 1 mg IV Q3H PRN PRN Reason: SEVERE Pain (Scale 7,8,9,10) Stop: 07/29/24 18:25 Last Admin: 07/16/24 06:02 Dose: 1 mg Hydroxyzine HCl (Hydroxyzine Hcl 25 Mg Tab) 25 mg PO Q8H PRN PRN Reason: Anxiety Stop: 08/14/24 18:25 Last Admin: 07/16/24 01:49 Dose: 25 mg Promethazine HCl (Phenergan) 12.5 mg in 50.5 mls @ 202 mls/hr IV Q6H PRN PRN Reason: Nausea And Vomiting Stop: 08/14/24 18:25 Influenza Virus Vaccine Quadrival (Do Not Administer Flu Vaccine) 1 each N/A PRN PRN PRN Reason: Notification Stop: 08/14/24 18:25 Magnesium Hydroxide (Magnesium Hydroxide Susp 30 Ml Udc) 30 ml PO Q24H PRN PRN Reason: Constipation Stop: 08/14/24 18:25 Melatonin (Melatonin 3 Mg Tab) 18 mg PO HS MOSHE Stop: 08/14/24 20:59 Last Admin: 07/15/24 22:15 Dose: 18 mg Naloxone HCl (Naloxone Hcl 0.4 Mg/1 Ml Vial/Carp) 0.1 mg IV Q5M PRN PRN Reason: Oversedation/Resp depression Stop: 08/14/24 18:25 Ondansetron HCl (Ondansetron Inj 2 Mg/Ml 2 Ml Vial) 4 mg IV Q6H PRN PRN Reason: Nausea &/or Vomiting Stop: 08/14/24 18:25 Ondansetron HCl (Ondansetron 4 Mg Od Tab) 4 mg PO Q6H PRN PRN Reason: Nausea Stop: 08/14/24 18:25 Oxycodone/Acetaminophen (Oxycodone/Acetaminophen 5mg/325mg Tab) 1 - 2 tab PO Q4H PRN PRN Reason: Pain & Pre PT Stop: 07/29/24 18:25 Last Admin: 07/16/24 04:08 Dose: 2 tab Pneumococcal Polyvalent Vaccine (Do Not Administer Pneumococcal Vaccine) 1 each N/A PRN PRN PRN Reason: Notification Stop: 08/14/24 18:25 Polyethylene Glycol (Polyethylene (Miralax) 17 Gm Pack) 17 gm PO Q6 MOSHE Stop: 08/15/24 05:59 Last Admin: 07/16/24 06:02 Dose: 17 gm Potassium Chloride (Potassium Chloride Crtab 20 Meq Tabcr) 40 meq PO NOW STA Stop: 07/16/24 07:47 Rosuvastatin Calcium (Rosuvastatin Calcium 20 Mg Tab) 20 mg PO QAM MOSHE Stop: 08/15/24 08:59 Senna/Docusate Sodium (Docusate Sodium/Senna 50/8.6mg Tab) 2 tab PO HS MOSHE Stop: 08/14/24 20:59 Last Admin: 07/15/24 22:14 Dose: 2 tab Sodium Biphosphate/Sodium Phosphate (Sod Phosphate/Sod Biphosphate Enema 132 Ml Btl) 132 ml MT ONE PRN PRN Reason: Constipation Stop: 08/14/24 18:25 Topiramate (Topiramate 100 Mg Tab) 200 mg PO BID MOSHE Stop: 08/14/24 20:59 Last Admin: 07/15/24 22:14 Dose: 200 mg Venlafaxine HCl (Venlafaxine Hcl Xr 150 Mg Capxr) 150 mg PO QAM MOSHE Stop: 08/15/24 08:59
[2024-07-16] MEDS: POTASSIUM CHLORIDE CRTAB 20 MEQ TABCR PO STA (08:44)
[2024-07-16] MEDS: FLUTICASONE/VILANTEROL 100/25MCG 14 PUFFS/INHALER INH SCH (08:44)
[2024-07-16] MEDS: ROSUVASTATIN CALCIUM 20 MG TAB PO SCH (08:44)
[2024-07-16] MEDS: VENLAFAXINE HCL XR 150 MG CAPXR PO SCH (08:44)
--- NOTE | 2024-07-16 10:14 | Orthopedic Progress Note ---
Date of Service July 16, 2024 Assessment & Plan (1) S/P lumbar fusion: s/p Lumbar Fusion WBAT, AAT with PT Scds and ambulate cont drain Diet as tolerated Pain control - percocet, muscle relaxers disposition planning, home in 1-2 days pending progress with PT and drain Subjective s/p TLIF, incisional pain as expected, pre op radicular pain has resolved with procedure, ambulating through halls this AM. Review of Systems All systems reviewed & are unremarkable except as noted in HPI & below. Physical Exam 5/5 L2-S1 myotomes SILT L2-S1 drain functioning Results & Data Results & Data Laboratory Results . Diagnostic Findings . PG Care Time/CCT Total # of Minutes Spent Total Time Spent with Patient: Total time spent is greater than 50% in coordination of care (as documented) at patient's floor/unit and/or counseling patient: Coding Level of Care Code 56393 Post Operative Follow-Up Diagnoses S/P lumbar fusion Z98.1
--- NOTE | 2024-07-16 12:22 | XRay Report ---
XR lumbar spine 2-3V CLINICAL HISTORY: post-op spine surgery COMPARISON STUDY: Lumbar spine MRI May 19, 2024. Intraoperative lumbar spine fluoroscopic images July 15, 2024. FINDINGS: L4-L5 discectomy with interbody spacer placement as noted. There is a posterior decompressi on with bilateral pedicle screws at the L4 and L5 levels. Surgical drain is in place. There are skin zack. There are no unexpected radiopaque foreign bodies. IMPRESSION: Expected findings following L4-L5 decompression and fusion. ACT 112: Negative or not required by law. Electronically signed by: Patrick Lazo M.D. 07/16/2024 12:20 PM
[2024-07-16] MEDS: BACLOFEN 20 MG TAB PO SCH (20:42)
[2024-07-17 07:36] LABS: BUN Creatinine Ratio 31.6 (10-20); Calcium 8.5 mg/dl (8.6-10.3); Creatinine Clr Calc Pharmacy 110.4 ml/min; Phosphorus 3.8 mg/dl (2.5-4.9); Potassium 3.6 mmol/L (3.5-5.1)
[2024-07-17 07:48] LABS: Hematocrit (blood only) 28.7 % (37.0-47.0); Hemoglobin 9.4 g/dl (12.0-16.0); Mean Corpuscular Hemoglobin 30.4 pg (25.0-34.0); Mean Corpuscular Hgb Conc 32.8 g/dL (32.0-36.0); Mean Corpuscular Volume 92.9 fL (80.0-100.0); Platelet Count 168 K/uL (130-400); RDW Coefficient of Variation 13.9 % (11.5-14.5); Red Blood Count 3.09 M/uL (4.20-5.40); White Blood Count 6.38 K/ul (4.8-10.8)
--- NOTE | 2024-07-17 10:33 | Fluoroscopy Report ---
FL lumbar spine 2-3V CLINICAL HISTORY: L4-L5 WITH CAROLYN AND OARM COMPARISON STUDY: Lumbar spine MRI May 19, 2024. FLUOROSCOPY TIME: 34 seconds. Ka,r: 26.33 mGy FLUOROSCOPIC IMAGES: 3 FINDINGS: Fluoroscopy was provided during L4-L5 decompression and fusion with interbody spacer placem ent. Hardware is intact. IMPRESSION: Fluoroscopy provided L4-L5 decompression and fusion. ACT 112: Negative or not required by law. Electronically signed by: Patrick Lazo M.D. 07/17/2024 10:31 AM
--- NOTE | 2024-07-17 10:41 | Hospitalist Progress Note ---
Date of Service July 17, 2024 Assessment & Plan (1) Lumbar radiculopathy: (2) S/P lumbar spine operation: Plan Yudy Perdomo is a 48-year-old with past medical history significant for asthma, HTN, HLD, IBS with constipation, hyperhidrosis, migraines, hepatitis C virus infection cured after antiviral drug therapy and anxiety/depression who [facility] after undergoing elective L4-L5 transforaminal lumbar interbody fusion secondary to lumbar spondylolisthesis and radiculopathy performed by Dr. Kurt Contreras on 07/15/2024. Lumbar Spondylolisthesis and Radiculopathy S/P Surgery: POD #2 s/p L4-L5 transforaminal lumbar interbody fusion with Dr. Contreras on 07/15/2024. Pre-Op Hgb: 12.4 [as of 07/04/2024] Per ortho for pain control, wound care, anticoagulation and activities. Continue incentive spirometry, PT/OT when appropriate as per ortho team. Acute blood loss anemia, post-op vs dilutional - current Hgb 9.4 (stable from yesterday) - no need for blood transfusion - cont. to monitor Other Chronic Medical Conditions: * HTN - Hold home antihypertensives for ISO relative hypotension. Asthma - Continue home inhaler. * Depression/Anxiety - Continue Effexor XR, diazepam PRN. HLD - Continue statin. Migraines - Topamax. DVT Prophylaxis: SCDs/TEDs as per primary service. Code Status: FULL CODE PCP: ZAYRA Awan Disposition:Med/Surg - discharge planning as per primary service. Thank you for this consultation. We will follow the patient with you during their hospital stay. You can reach a [facility] via As Seen on TV. Admission and Anticipated Discharge Date Admission Date: July 15, 2024 Subjective Pt seen in follow up , s/p spinal surg., med consult Currently laying in bed in NAD, family present at the bedside Feeling well, having some post-surgical pain, but LE pain she had before surgery is resolved No fever, chills, chest pain, shortness of breath, no abd. pain, n/v Ambulating w/ walker. Voiding w/o difficulty. No BM yet. Passing flatus. Hgb 9.4, stable Review of Systems Review of Systems: All systems reviewed & are unremarkable except as noted in Subjective Physical Exam Physical Exam: GENERAL: WD/WN F in NAD HEENT: NC, AT. MMM. EOMI, clear conjunctiva NECK: Supple. No stiffness or restricted ROM. HEART: Normal rate and regular rhythm, normal S1/S1, no m/r/g LUNGS: CTAB, moving air well. No crackles or wheezes are heard. ABDOMEN: Soft, nontender, nondistended, +bowel sounds. EXTREMITIES: no LE edema, moves extremities NEUROLOGICAL: Alert and oriented, speech fluent, answers appropriately, moving all 4 extremities Skin: Warm and dry without any rash. + tattoos Results & Data Results & Data Vital Signs (Past 12 Hours) Vital Signs Temp Pulse Resp BP Pulse Ox O2 Del Method 07/17/24 07:19 36.8 C 74 18 125/83 99 Room Air Laboratory Results 07/17/24 Range/Units 05:51 WBC 6.38 (4.8-10.8) K/ul RBC 3.09 L (4.20-5.40) M/uL Hgb 9.4 L (12.0-16.0) g/dl Hct 28.7 L (37.0-47.0) % MCV 92.9 D (80.0-100.0) fL MCH 30.4 (25.0-34.0) pg MCHC 32.8 (32.0-36.0) g/dL RDW Std Deviation 47.0 H (36.4-46.3) fL RDW Coeff of Chauncey 13.9 (11.5-14.5) % Plt Count 168 (130-400) K/uL MPV 10.0 (9.4-12.4) fL Sodium 140 (136-145) mmol/L Potassium 3.6 (3.5-5.1) mmol/L Chloride 111 H (98-107) mmol/L Carbon Dioxide 24 (21-32) mmol/L Anion Gap 5 (3-11) BUN 24 H (6-23) mg/dl Creatinine 0.76 (0.6-1.2) mg/dl Est Cr Clr Drug Dosing 110.4 ml/min eGFR 97.20 BUN/Creatinine Ratio 31.6 H (10-20) Glucose 100 H (70-99(Fasting)) mg/dl Calcium 8.5 L (8.6-10.3) mg/dl Phosphorus 3.8 (2.5-4.9) mg/dl Magnesium 2.0 (1.7-2.4) mg/dl Medications Administered Current Inpatient Medications Acetaminophen (Acetaminophen 500 Mg Tab) 1,000 mg PO Q8H PRN PRN Reason: MILD Pain Scale 1,2,3 & Pre PT Stop: 08/14/24 18:25 Al Hydrox/Mg Hydrox/Simethicone (Aluminum/Magnesium Susp 30 Ml Udc) 30 ml PO Q6H PRN PRN Reason: Dyspepsia Stop: 08/14/24 18:25 Albuterol (Albuterol Hfa 8 Gm Inhaler) 1 - 2 puffs INH Q4H PRN PRN Reason: Shortness Of Breath Or Wheezing Stop: 08/14/24 18:25 Baclofen (Baclofen 20 Mg Tab) 20 mg PO PM MOSHE Stop: 08/15/24 20:59 Last Admin: 07/16/24 20:42 Dose: 20 mg Bisacodyl (Bisacodyl 10 Mg Supp) 10 mg SC DAILY PRN PRN Reason: Constipation Stop: 08/14/24 18:25 Diazepam (Diazepam 5 Mg Tablet) 5 mg PO TID PRN PRN Reason: muscle spasm Stop: 08/14/24 18:25 Last Admin: 07/17/24 09:15 Dose: 5 mg Diphenhydramine HCl (Diphenhydramine Capsule 25 Mg Cap) 25 mg PO Q6H PRN PRN Reason: Allergic Rhinitis/Insomnia Stop: 08/14/24 18:25 Famotidine (Famotidine 20 Mg Tab) 20 mg PO Q12H PRN PRN Reason: Dyspepsia Stop: 08/14/24 18:25 Fluticasone/Vilanterol (Fluticasone/Vilanterol 100/25mcg 14 Puffs/Inhaler) 1 puffs INH DAILY MOSHE Stop: 08/15/24 08:59 Last Admin: 07/17/24 08:47 Dose: Not Given Gabapentin (Gabapentin 300 Mg Cap) 300 mg PO BID MOSHE Stop: 08/14/24 20:59 Last Admin: 07/17/24 09:15 Dose: 300 mg Hydromorphone HCl (Hydromorphone Inj 0.5 Mg/0.5 Ml Syr) 0.5 mg IV Q3H PRN PRN Reason: MODERATE Pain (Scale 4,5,6) & Pre PT Stop: 07/29/24 18:25 Hydromorphone HCl (Hydromorphone Inj 1 Mg/Ml Syringe) 1 mg IV Q3H PRN PRN Reason: SEVERE Pain (Scale 7,8,9,10) Stop: 07/29/24 18:25 Last Admin: 07/17/24 07:22 Dose: 1 mg Hydroxyzine HCl (Hydroxyzine Hcl 25 Mg Tab) 25 mg PO Q8H PRN PRN Reason: Anxiety Stop: 08/14/24 18:25 Last Admin: 07/17/24 03:24 Dose: 25 mg Promethazine HCl (Phenergan) 12.5 mg in 50.5 mls @ 202 mls/hr IV Q6H PRN PRN Reason: Nausea And Vomiting Stop: 08/14/24 18:25 Influenza Virus Vaccine Quadrival (Do Not Administer Flu Vaccine) 1 each N/A PRN PRN PRN Reason: Notification Stop: 08/14/24 18:25 Magnesium Hydroxide (Magnesium Hydroxide Susp 30 Ml Udc) 30 ml PO Q24H PRN PRN Reason: Constipation Stop: 08/14/24 18:25 Melatonin (Melatonin 3 Mg Tab) 18 mg PO HS MOSHE Stop: 08/14/24 20:59 Last Admin: 07/16/24 21:56 Dose: 18 mg Naloxone HCl (Naloxone Hcl 0.4 Mg/1 Ml Vial/Carp) 0.1 mg IV Q5M PRN PRN Reason: Oversedation/Resp depression Stop: 08/14/24 18:25 Ondansetron HCl (Ondansetron Inj 2 Mg/Ml 2 Ml Vial) 4 mg IV Q6H PRN PRN Reason: Nausea &/or Vomiting Stop: 08/14/24 18:25 Ondansetron HCl (Ondansetron 4 Mg Od Tab) 4 mg PO Q6H PRN PRN Reason: Nausea Stop: 08/14/24 18:25 Oxycodone/Acetaminophen (Oxycodone/Acetaminophen 5mg/325mg Tab) 1 - 2 tab PO Q4 H PRN PRN Reason: Pain & Pre PT Stop: 07/29/24 18:25 Last Admin: 07/17/24 09:16 Dose: 2 tab Pneumococcal Polyvalent Vaccine (Do Not Administer Pneumococcal Vaccine) 1 each N/A PRN PRN PRN Reason: Notification Stop: 08/14/24 18:25 Polyethylene Glycol (Polyethylene (Miralax) 17 Gm Pack) 17 gm PO Q6 MOSHE Stop: 08/15/24 05:59 Last Admin: 07/17/24 05:11 Dose: 17 gm Potassium Chloride (Potassium Chloride Crtab 20 Meq Tabcr) 40 meq PO NOW STA Stop: 07/17/24 10:41 Rosuvastatin Calcium (Rosuvastatin Calcium 20 Mg Tab) 20 mg PO QAM MOSHE Stop: 08/15/24 08:59 Last Admin: 07/17/24 09:15 Dose: 20 mg Senna/Docusate Sodium (Docusate Sodium/Senna 50/8.6mg Tab) 2 tab PO HS MOSHE Stop: 08/14/24 20:59 Last Admin: 07/16/24 20:42 Dose: 2 tab Sodium Biphosphate/Sodium Phosphate (Sod Phosphate/Sod Biphosphate Enema 132 Ml Btl) 132 ml SC ONE PRN PRN Reason: Constipation Stop: 08/14/24 18:25 Topiramate (Topiramate 100 Mg Tab) 200 mg PO BID MOSHE Stop: 08/14/24 20:59 Last Admin: 07/17/24 09:15 Dose: 200 mg Venlafaxine HCl (Venlafaxine Hcl Xr 150 Mg Capxr) 150 mg PO QAM MOSHE Stop: 08/15/24 08:59 Last Admin: 07/17/24 09:15 Dose: 150 mg
[2024-07-17] MEDS: POTASSIUM CHLORIDE CRTAB 20 MEQ TABCR PO STA (10:59)
--- NOTE | 2024-07-17 11:12 | Orthopedic Progress Note ---
Date of Service July 17, 2024 Assessment & Plan (1) S/P lumbar fusion: AAT, WBAT with PT diet as tolerated scds pain control drain out later today if less than 50cc over 8 hours xrays show implants in good position Subjective s/p Lumbar fusion, working with PT, no issues overnight Review of Systems All systems reviewed & are unremarkable except as noted in HPI & below. Physical Exam neuro exam stable drain functioning dressing c/d/i Results & Data Results & Data Laboratory Results . Diagnostic Findings . PG Care Time/CCT Total # of Minutes Spent Total Time Spent with Patient: Total time spent is greater than 50% in coordination of care (as documented) at patient's floor/unit and/or counseling patient: Coding Level of Care Code 67219 Post Operative Follow-Up Diagnoses S/P lumbar fusion Z98.1
[2024-07-18 07:37] VITALS: BP 125/78; PULSE 70; RESP 15; TEMP 97.7; O2SAT 98
--- NOTE | 2024-07-18 10:13 | Discharge Summary ---
Date of Service July 18, 2024 Admission HPI Per Admitting Provider 06/06/2024: "HPI: Patient is a very pleasant 48-year-old female who comes in today for evaluation of longstanding low back pain radiating into the left lower extremity. Pain goes down the posterior aspect of her thigh and calf correlating with S1 dermatomal pattern. She has done over 9 months of physical therapy and was discharged due to lack of improvement. She has also trialed muscle relaxers, anti-inflammatories without significant lasting effect. 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 Also having difficulty sleeping at night due to the severity of her pain. She was evaluated by Dr. Modi here in our office who ordered an MRI of the lumbar spine and has referred her to me for a opinion on her spine MRI. She has severe pain in the left lower extremity, normal bowel bladder function, no fixed neurological deficits. Imaging: Weightbearing AP and lateral as well as flexion-extension views were obtained in the clinic today and interpreted personally. Counting on the AP it appears that she has a partially lumbarized S1 vertebral body. There is a remnant disc space. I would leave due to the transitional vertebra what is be ing referred to on her MRI of the L4-5 disc space is actually her L5-S1 disc space. I will continue to call this disc space the L4-5 level so it correlates with her MRI to avoid confusion. Grade 1 spondylolisthesis with instability on flexion-extension views at this level. Significant posterior facet arthropathy. MRI of the lumbar spine was available for review and interpreted personally. Again I believe there is transitional vertebra however I will continue with the numbering scheme used by the radiologist. What they have identified at the L4-5 level shows severe facet arthropathy left facet joint shows 5.7 mm of fluid within the facet joint with severe facet gapping indicative of instability, there is also a facet cyst arising from the left facet capsule creating lateral recess stenosis and compression of the traversing nerve root. Moderate foraminal stenosis at this level On the left. there is approximately 3-1/2 millimeters of facet joint fluid on the right at the same level. Assessment: 48-year-old female with low back pain, transitional vertebra, unstable spondylolisthesis with facet cyst at the L4-5 level as documented on her MRI. I believe this is actually concordant with an L5-S1 level which would fit with her symptoms of S1 radiculopathy however we will maintain the MRI numbering scheme for clarity Plan: We discussed continued treatment options which would include continued conservative care with medications and possible facet aspiration and injection. She has already done 9 months of physical therapy so I do not feel would be of any benefit to continue with PT, she has trialed [id number] anti- inflammatories such as ibuprofen and Aleve as well as meloxicam which did not help. Currently taking baclofen which provides minimal relief. We discussed the possibility of injections and aspiration however given the instability at this level with facet cyst I feel there is a low probability of injections providing long-term relief. I discussed surgical treatment in the form of a transforaminal lumbar interbody fusion with posterolateral fusion and excision of the facet cyst. We discussed surgical intervention at length, and the patient was informed that risks include but are not limited to: bleeding and possible need for blood transfusion, infection, blood clots to extremities or lungs, no relief of symptoms, dural tear, nerve injury, paralysis, weakness, pain, instrumentation failure, prolonged recovery, need for physical therapy or rehabilitation services, loss of bowel/bladder control, recurrent stenosis or disc herniation, need for more surgery, and in very rare instances even . We also discussed that there is risk of pseudarthrosis formation, failure of the fusion to occur which may increase chances of instrumentation failure or need for further surgery. We also discussed that fusing the spine puts the patient at risk for adjacent segment breakdown and possible need for future surgery, the risk is approximately 3-5% per year. The patient voiced understanding of the risks and benefits of surgery and elected to proceed. Will begin the surgery scheduling process, I also feel that is reasonable to start her on some other medications. She was prescribed gabapentin today with proper titration instructions given. I will also send in a prescription for diclofenac. I warned her about the risks of elevating her blood pressure and she is to check this regularly, any elevation of blood pressure and she is to cease the medication. I also advised her not to take any other anti- inflammatories such as Aleve or ibuprofen however Tylenol is okay. Also advised her to take the medication with food to avoid GI distress." Admission Exam Per Admitting Provider Constitutional: Well developed, appears stated age Psych: patient is coherent and answers questions appropriately, normal affect Eye: Normal gaze, no redness to sclera, pupils round and equal Pulm: Normal respiratory effort, no wheezing Cardiovascular: no significant peripheral edema, palpable DP/PT pulses Skin shows no rashes, lesions Lower lumbar midline tenderness Motor strength is 5/5 in bilateral hip flexors, quadriceps, tibialis anterior, extensor hallucis longus, and gastroc/soleus complex Sensation intact to light touch in the L2-S1 dermatomes bilaterally 2+ reflexes at the achilles and patella tendons bilaterallyNo ankle clonus Principal Diagnosis s/p L4-L5 Transforaminal Lumbar Interbody Fusion, with Spinal Cord Monitoring Discharge Exam GENERAL: Speech and cognition is intact. Mood and affect is appropriate. Does not appear in acute distress. HEAD: Normocephalic; atraumatic. CHEST: Regular chest respiration and excursion. NEURO: Awake, alert, and oriented x 3. BACK: Dressing intact to lumbar spine with overlying Medipore tape and no evidence of saturation. No evidence of erythema, drainage, or abnormal warmth. LOWER EXTREMITIES: Sensation intact to light touch of the bilateral L2-S1 dermatomes. Plantar/dorsiflexion intact bilaterally. NVI distally. R Hip flexion 5/5; knee extension 5/5; knee flexion 5/5; ankle dorsiflexion 5/5; ankle plantar flexion 5/5; EHL 5/5 L Hip flexion 5/5; knee extension 5/5; knee flexion 5/5; ankle dorsiflexion 5/5; ankle plantar flexion 5/5; EHL 5/5 Discharge Data Allergies Allergy/AdvReac Type Severity Reaction Status Date / Time Iodinated Contrast Media Allergy Severe "CAN'T Verified 07/15/24 09:53 BREATHE" shellfish derived Allergy Severe ANAPHYLAXIS, Verified 07/15/24 09:53 HIVES codeine Allergy Intermediate Vomiting,DIARRHEA, Verified 07/15/24 09:53 ITCHY RASH Quinolones Allergy Unknown Unknown Verified 07/15/24 09:53 moxifloxacin AdvReac Intermediate VOMITING Verified 07/15/24 09:53 Consultations 07/15/24 18:26 Consult Hospitalist Routine Procedures Performed Operation Date: 07/15/24 11:20 Actual Procedures p L4-L5 Transforaminal Lumbar Interbody Fusion, with Spinal Cord Monitoring(Not Applicable) - Kurt Contreras MD Ordered Studies 07/15/24 11:20 CT lumbar spine wo con Routine [place] lumbar spine 2-3V Routine Hospital Course (1) S/P lumbar fusion: (2) Lumbar adjacent segment disease with spondylolisthesis: (3) Lumbar radiculopathy: Plan On July 15, 2024 uYdy arrived at [facility] operating room and underwent an L4-5 transforaminal lumbar interbody fusion with placement of posterior instrumentation without complications. Patient had general anesthesia for the procedure. Patient was admitted to the general orthopedic floor in stable condition postoperatively for pain control and mobilization with physical therapy; they safely and properly performed the ADL tasks demonstrated by PT/OT and met all goals. Pain was controlled with IV pain medication, with a transition to oral medications. Normal return of bowel and bladder function. They worked with therapy, vital signs were acceptable, no need for transfusion, deemed safe for discharge. Patient was then discharged home in stable condition, with self care and assistance from her . Patient will follow-up with Dr. Contreras/Dhruv Garcia PA-C in the orthospine clinic in approximately 2 weeks, as scheduled, for postoperative care. Total Time Total Time Spent Total Time Spent (In Minutes): Total Time Spent with Patient: Total time spent is greater than 50% in coordination of care (as documented) at patient's floor/unit and/or counseling patient Discharge Plan Discharge Items Patient Disposition: Home - Self-Care Reason For Visit: Cyst of Lumbar Facet Joint, Lumbar Pain with Radia Discharge Diagnosis: s/p lumbar fusion Activity: Per Instructions section Lifting: No more than 10 pounds Exercise/Sports: None Weightbearing: Full weightbearing Non-emergency contact: Surgeon Call non-emergency contact if: your pain is worsening, your temperature is above 101, your wound has increased redness and your wound has increased drainage Follow-up/Referrals: Kamila Villaseñor CRNP [Outside Practitioners] - (Date & Time 07/22/2024 8:40 AM Provider: Kamila Villaseñor CRNP Department: Family Practice [facility] ) Kurt Contreras MD [Surgeon] - (as scheduled on 08/01/24) Diet: Regular Addtl Attending Provider Instructions: May shower on the 3rd day after surgery. As long as there remains any drainage on the bandage/dressing, keep covered with daily fresh dressings, and cover with Saran (cling) wrap and tape the edges to shower. If the dressing becomes wet, remove it and blot the skin and surgical site dry and cover with a new sterile, dry dressing. Once there is no longer any drainage from the surgical wound site, dressings are no longer needed and the area can be left open to the air. At that point, you can wash the incision and surgical site with soap and water briefly (Do NOT soak incision), and then blot dry with a clean towel/cloth. Aga in, the area should then be left open to the air. No strenuous activity, bending, lifting, twisting, turning, or exercise until further instructed. Use the prescribed pain medication, and/or [id number] Tylenol, as needed for pain relief -- follow directions on the bottle; limit Tylenol to 4,000 mg maximum in a 24-hour period. No use of NSAIDs (i.e ibuprofen/Advil/Motrin, naproxen/Aleve, etc.) for 3 months after surgery. Pending Studies at Discharge: No Stand-Alone Forms: My [facility] Glints, Smoking Cessation Medications and DC Order Prescriptions: New oxycodone-acetaminophen [Percocet] 5-325 mg Tablet 1 tab PO .Q4-6H PRN (Reason: pain) Qty: 30 0RF Continued venlafaxine [Effexor XR] 150 mg capsule,extended release 24hr 150 mg PO QAM Premarin 0.3 mg tablet 0.3 mg PO QAM Rx Instructions: cyclically albuterol sulfate [Ventolin HFA] 90 mcg/actuation HFA aerosol inhaler 1 - 2 puff Inhalation Q4H PRN (Reason: Shortness Of Breath Or Wheezing) Qty: 18 0RF baclofen 10 mg tablet 10 mg PO BID Qty: 60 2RF topiramate [Topamax] 200 mg tablet 200 mg PO BID losartan-hydrochlorothiazide 50-12.5 mg tablet 1 tab PO QAM fluticasone propion-salmeterol [Advair Diskus] 100-50 mcg/dose blister with device 1 inh inhalation BID PRN (Reason: sob) amlodipine 5 mg Tablet 5 mg PO QAM rosuvastatin 20 mg Tablet 20 mg PO QAM gabapentin 300 mg capsule 300 mg PO BID Rx Instructions: Start with one capsule at night for 4 days, if incomplete relief increase to one capsule at night and one in AM, if needed increase to one capsule three times daily. If adverse side effects decrease medication by one capsule every three days until off. melatonin 10 mg Tablet 20 mg PO HS Discontinued diazepam [Valium] 5 mg tablet 5 mg PO TID PRN (Reason: muscle spasm) Qty: 6 0RF Rx Instructions: 1 tablet PM before, 1 tablet 2hr prior, 1 tablet 1hr prior to procedure (enough for 2 separate procedures) diclofenac potassium 50 mg tablet 50 mg PO BID Qty: 60 0RF No Action (DME) Wheeled Walker Misc See Rx Instructions .MEDSUPPLY Qty: 1 0RF Rx Instructions: As directed Discharge Orders: Discharge Order (Routine); Ordered 07/18/24 Ordered By: Dhruv Steward/Other Patient Handouts: Lumbar Fusion Dc Admission Data Admit Date/Time: 07/15/24 17:15 Attending Provider: Kurt Contreras Admit Provider: Kurt Contreras Primary Care Provider: Frantz Cummings Other Providers: Eliz Barboza Other Interventions: Discharge Summary Assessment (RN) Last Done: 07/18/24 12:12
--- NOTE | 2024-07-18 13:05 | Orthopedic Progress Note ---
Date of Service July 18, 2024 Assessment & Plan (1) S/P lumbar fusion: (2) Other spondylosis with radiculopathy, lumbar region: (3) Spondylolisthesis, lumbar region: (4) Cyst of lumbar facet joint: Plan SPINE: 48-year-old woman POD#3 s/p L4-5 TLIF, doing well overall. Reports low back pain, but understands this is normal postoperatively; pain is overall controlled. Medically stable. She is neurologically intact. Plan: 1. DVT prophylaxis w/ regular ambulation/mobilization. 2. PT/OT at home as taught while inpatient. 3. Rx for Percocet sent to pharmacy; may also utilize OTC acetaminophen. 4. Daily dressing changes to check for drainage. Showering prior to discharge instructions section. 5. Disposition - plan to D/C home today once they are ready to return home. 6. F/u as scheduled on 08/01/24 w/ Dr. Contreras for first post-op visit. Admission and Anticipated Discharge Date Admission Date: July 15, 2024 Subjective Patient is POD# 3 s/p L4-[address]IF by Dr. Contreras on 07/15/2024. Patient says her pain is relatively well-controlled this morning with the use of IV and oral pain medications. Denies CP, SOB, N/V, B/L LE paresthesia. She feels comfortable to return home later today with her once he has had a chance to clear some snow from their home property. Physical Exam Physical Exam: GENERAL: Speech and cognition is intact. Mood and affect is appropriate. Does not appear in acute distress. HEAD: Normocephalic; atraumatic. CHEST: Regular chest respiration and excursion. NEURO: Awake, alert, and oriented x 3. BACK: Dressing intact to lumbar spine with overlying Medipore tape and no evide nce of saturation. No evidence of erythema, drainage, or abnormal warmth. LOWER EXTREMITIES: Sensation intact to light touch of the bilateral L2-S1 dermatomes. Plantar/dorsiflexion intact bilaterally. NVI distally. R Hip flexion 5/5; knee extension 5/5; knee flexion 5/5; ankle dorsiflexion 5/5; ankle plantar flexion 5/5; EHL 5/5 L Hip flexion 5/5; knee extension 5/5; knee flexion 5/5; ankle dorsiflexion 5/5; ankle plantar flexion 5/5; EHL 5/5 Results & Data Vital Signs (Past 12 Hours) Vital Signs Temp Pulse Resp BP Pulse Ox O2 Del Method 07/18/24 07:36 36.5 C 70 15 125/78 98 Room Air
--- OUTSIDE RECORDS SUMMARY | 2024-07-18 15:04 | External Medical Summary | Summary of Care ---
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 Name Role Phone Kamila Villaseñorhudson IVERSON Primary Care Provider Encounter Details Date Type Department Care Team (Late st Contact Info) Description 07/18/2024 Population Health External Data Unspecified Department Allergies Active Allergy Reactions Criticality Noted Date Comments Moxifloxacin Hcl In Nacl 12/29/2014 Codeine 12/29/2014 Iodine Itching 03/31/2016 Shellfish Allergy 12/29/2014 documented as of this encounter (statuses as of 07/18/2024) Medications amLODIPine Besylate 5 MG Oral Tablet (Norvasc)Indicatio ns:HTN, goal below 130/80 TAKE 1 TABLET BY MOUTH EVERY DAY IN THE MORNING 90 Tablet 1 4 Active Fluticasone-Salmet luis 100-50 MCG/ACT Inhalation Aerosol Powder Breath Activated (Advair Diskus)Indications :Moderate persistent asthma without complication INHALE 1 PUFF BY MOUTH IN THE MORNING AND BEFORE BEDTIME 60 Each 2 4 Active Topiramate 200 MG Oral Tablet (topAMAX)Indicatio ns:Migraine with aura and without status migrainosus, not intractable TAKE 2 TABLETS BY MOUTH TWICE A DAY 120 Tablet 2 4 Active Albuterol Sulfate HFA 108 (90 Base) MCG/ACT Inhalation Aerosol SolutionIndication s:Moderate persistent asthma without complication INHALE BY MOUTH 2 PUFFS EVERY 6 HOURS NEEDED FOR SHORTNESS OF BREATH OR WHEEZING. 18 g 2 4 Active Baclofen 10 MG Oral Tablet (Lioresal) Take 1 Tablet by mouth in the morning and 1 Tablet before bedtime. 4 Active Restasis 0.05 % Ophthalmic Emulsion Instill 1 Drop into both eyes in the morning and 1 Drop before bedtime. 4 Active Gabapentin 300 MG Oral Capsule (Neurontin) Take 1 Capsule by mouth in the morning and 1 Capsule in the evening. 4 Active Diclofenac Potassium 50 MG Oral Tablet Take 1 Tablet by mouth in the morning and 1 Tablet before bedtime. 4 Active predniSONE 10 MG Oral Tablet (Deltasone)Indicat ions:Bronchitis, complicated Take 5 tabs for 2 days, 4 tabs for 2 days, 3 tabs for 2 days, 2 tabs for 2 days 1 tab for 2 days 30 Tablet 4 Active Venlafaxine HCl ER 150 MG Oral Capsule Extended Release 24 Hour (Effexor XR)Indications:Hot flashes due to surgical menopause TAKE 1 CAPSULE BY MOUTH IN THE MORNING. DO NOT CUT, CRUSH OR CHEW. 90 Capsule 4 Active Premarin 1.25 MG Oral Tablet (Estrogens Conjugated)Indicat ions:Hot flashes due to surgical menopause TAKE 1 TABLET BY MOUTH EVERY DAY IN THE MORNING 90 Tablet 4 Active Rosuvastatin Calcium 20 MG Oral Tablet (Crestor)Indicatio ns:Hyperlipidemia, unspecified hyperlipidemia type TAKE 1 TABLET BY MOUTH EVERY DAY IN THE MORNING 90 Tablet 4 Active Losartan Potassium 100 MG Oral Tablet (Cozaar) TAKE 1 TABLET BY MOUTH EVERY DAY IN THE MORNING 30 Tablet 4 Active hydroCHLOROthiazid e 12.5 MG Oral Capsule TAKE 1 CAPSULE BY MOUTH EVERY MORNING 30 Capsule 4 Active documented as of this encounter (statuses as of 07/18/2024) Active Problems Problem Noted Date Diagnosed Date Hyperhidrosis 01/08/2024 Need for fgefrpssnk-[id number]-doibqmovd (Tdap) vac cine 01/08/2024 Moderate persistent asthma [...] as of this encounter (statuses as of 07/18/2024) Resolved Problems Problem Noted Date Diagnosed Date Resolved Date Chronic hepatitis C without hepatic coma 04/15/2022 12/12/2022 Overview (12/12/2022): HCV treated; SVR confirmed 12/09/2022 documented as of this encounter (statuses as of 07/18/2024) Immunizations Name Administration Dates Next Due COVID-19 mRNA, LNP-s, No Pre serve, 2-Dose Series (SilkStart) 10/26/2020,10/05/2020 COVID-19, mRNA, LNP-s, PF, B ooster, [...] on file documented as of this encounter Plan of Treatment Health Maintenance Due Date Last Done Comments [...] 12/29/2014 Mammogram 01/16/2024 01/15/2023, 01/15/2023 COVID-19 Vaccine (2023-2 5 season) 2024 05/27/2021, 10/26/2020, 10/05/2020 Influenza [...] filedocumented as of this encounter Care Teams Press And Blow Machine Tender Relationship Specialty Start Date End Date Kamila Villaseñor CRNP [address] [place] [id number] PCP - General Nurse Practitioner 07/04/24 documented as of this encounter
== END 2024-07-18 12:41 | disposition home or self-care (01) ==
LOC: 3E 09:24 → ASU 09:24